=== PATIENT | male | born 1955 | race Caucasian/White ===

== ENCOUNTER 2016-06-21 05:47 | Outpatient (CLI) | payer OTHER ==
[~2016-06-21] VITALS: Ht 177.8 cm; Wt 88.5 kg
[~2016-06-21 05:47] MED LIST: HYDR-34 PO; ROSU20TA14 PO
== END 2016-06-21 12:31 ==
LOC: PREOP 05:47
PROVIDERS: ATTEND Surgery Pediatric Surgery
DX: Z01.818 Encounter for other preprocedural examination (principal); Z12.11 Encounter for screening for malignant neoplasm of colon

== ENCOUNTER 2016-06-24 10:00 | Day surgery (SDC) | payer OTHER ==
[~2016-06-24] VITALS: Ht 177.8 cm; Wt 88.5 kg
[2016-06-24] MEDS ORDERED: NALOXONE 0.4 MG/ML 1 ML (NARCAN) VIAL IVP PRN (10:15)
[2016-06-24] MEDS ORDERED: LIDOCAINE JELLY 2% (XYLOCAINE) 5 ML TUBE MM PRN (10:15)
[2016-06-24] MEDS ORDERED: FLUMAZENIL (ROMAZICON) 0.1 MG/ML 5 ML VIAL INJ PRN (10:15)
[2016-06-24] MEDS ORDERED: NS IV 500 ML 500 ML ONE (10:17)
[2016-06-24] MEDS ORDERED: NS IV 500 ML 500 ML IV PRN (10:30)
--- NOTE | 2016-06-24 10:38 | Conscious Sedation/ASA ---
Conscious Sedation Pre-Proced Time Reviewed: 10:30 ASA Class: 2 Airway Mallampati Classification: ([place] appropriate class) I. II. III, IV Lungs Heart ASA score ASA 1: a normal healthy patient ASA 2: a patient with a mild systemic disease (mid diabetes, controlled hypertension, obesity ASA 3: a patient with a severe systemic disease that limits activity (angina , COPD, prior Myocardial infarction) ASA 4: a patient with an incapacitating disease that is a constant threat to life (CHF, renal failure) ASA 5: a moribund patient not expected to survive 24 hrs. (ruptured aneurysm) ASA 6: a declared brain patient whose organs are being harvested. For emergent operations, add the letter E after the classification Grade 2 Sedation Plan: Analgesia, Amnesia, Plan communicated to team members, Discussed options with patient/fam, Discussed risks with patient/fam Note The patient is an appropriate candidate to undergo the planned procedure, sedation, and anesthesia. The patient immediately re-assessed prior to indication. ERIN ASHLEY MD June 24, 2016 10:38 am
--- NOTE | 2016-06-24 10:38 | Progress Note-Pre Operative ---
Pre-Operative Progress Note H&P Reviewed The H&P was reviewed, patient examined and no changes noted. Date H&P Reviewed: June 24, 2016 Time H&P Reviewed: 10:30 Pre-Operative Diagnosis: screening colonoscopy ERIN ASHLEY MD June 24, 2016 10:38 am
[2016-06-24 10:40] VITALS: BP 133/92
[2016-06-24] MEDS ORDERED: morphine INJ 10 MG/ML 1ML (SYR OR VIAL) IV PRN (10:45)
[2016-06-24] MEDS ORDERED: ACETAMINOPHEN 325 MG TABLET/CAPLET (TYLENOL) PO PRN (10:45)
[2016-06-24] MEDS ORDERED: HYDROcodone/APAP 5 MG/325 MG (LORTAB) TAB PO PRN (10:45)
[2016-06-24] MEDS ORDERED: ONDANSETRON 4 MG/2 ML (SDV) Z0FRAN IV PRN (10:45)
[2016-06-24] MEDS ORDERED: MIDAZOLAM 2 MG/2 ML (VERSED) VIAL ONE ×4 (10:48)
[2016-06-24] MEDS ORDERED: fentaNYL INJECTION 100 MCG/2 ML AMP ONE ×2 (10:49)
[2016-06-24] MEDS ORDERED: LIDOCAINE JELLY 2% (XYLOCAINE) 5 ML TUBE ONE (10:49)
[2016-06-24] MEDS: fentaNYL INJECTION 100 MCG/2 ML AMP IVP PRN ×2 (10:52→11:00)
[2016-06-24] MEDS: MIDAZOLAM 2 MG/2 ML (VERSED) VIAL IVP PRN ×4 (10:54→11:07)
--- NOTE | 2016-06-24 11:25 | Progress Note-Post Operative ---
Post-Operative Progess Note Surgeon (s)/C Developer (s) Surgeon ERIN ASHLEY MD C Developer: none Pre-Operative Diagnosis screening colonoscopy Post-Operative Diagnosis chronic stage 1 ext and int hemorrhoids, mild-mod sigmoid diverticulosis. Post-Op Procedure Note Date of Procedure: June 24, 2016 Name of Procedure Performed: Colonoscopy Description of the Procedure: Colonoscopy Findings of the Procedure . Anesthesia Type GET Estimated blood loss (mL): minimal Specimen(s) collected/removed GE jxn, antrum ERIN ASHLEY MD June 24, 2016 11:25 am
--- NOTE | 2016-06-24 11:26 | Discharge Inst-Surgical ---
D/C Lap Instructions-DION Follow Up 10 years. Activity as tolerated High Fiber Diet 25g or more per day Avoid Alcohol, Caffeine, Spicy Miles and Acid foods. Drink 64 fluid oz or more of fluids per day. Symptoms to Report: Fever over 101 degree F, Nausea/Vomiting If any problems/questions: Contact your physician or go to Emergency Room ERIN ASHLEY MD June 24, 2016 11:26 am
[2016-06-24 11:40] VITALS: BP 123/73
[2016-06-24 12:00] VITALS: BP 137/80
--- NOTE | 2016-06-24 12:16 | OPERATIVE REPORT ---
DATE OF SERVICE: 06/24/2016 ATTENDING PHYSICIAN: Dr. Novak. PREOPERATIVE DIAGNOSIS: Screening colonoscopy. POSTOPERATIVE DIAGNOSIS: Mild chronic stage I external and internal hemorrhoids, mild to moderate sigmoid diverticulosis. PROCEDURE: Colonoscopy. SURGEON: Dr. Ashley. ANESTHESIA: Conscious sedation. ESTIMATED BLOOD LOSS: Minimal. FINDINGS: Mild chronic stage I external and internal hemorrhoids. Prostate gland was palpable and appeared normal. There was a mild to moderate sigmoid diverticulosis with no mucosal inflammatory changes to indicate any active diverticulitis. No polyps identified. DISPOSITION: The patient tolerated the procedure well. The patient is a 61-year-old male in need of a followup screening colonoscopy. This gentleman is doing well for the most part and states that he does have a bowel movement on a daily basis. He also does not report any major issues with diarrhea or constipation. He also does not report any red blood per rectum or any dark tarry stools. He did have a colonoscopy in 2006 which was normal. He also does not report any family history of colon cancer. The patient was brought to the endoscopy suite, laid in the left lateral decubitus position. After adequate IV pain and sedating medications and conscious sedation anesthesia, a digital rectal examination was performed. Chronic stage II external and internal hemorrhoids were identified which are not actively edematous and no bleeding. Normal sphincter tone was felt and there were no palpable masses. Prostate gland was palpable and appeared normal. The endoscope was then intubated to the anus and rectum and gently insufflated. The endoscope was then advanced to the valves of Sims of the rectum with no polyps or any neoplasms identified. We then proceeded through the sigmoid colon where mild to moderate sigmoid diverticulosis was identified. There were no mucosal inflammatory changes to indicate any active diverticulitis. The endoscope was then advanced to the remainder of the descending, transverse, and ascending colon to the cecum. These segments were normal. There were no polyps or any neoplasms identified throughout the colon or rectum. The endoscope was then slowly withdrawn with taking a second look and suctioning of residual air with no additional findings. The patient tolerated the procedure well. We will have him continue with medical management with a high fiber diet with at least 30 grams of fiber per day to promote soft stools on a daily basis. He does not need another colonoscopy for another ten years. Job ID: [id number] DocumentID: [id number] Dictated Date: 06/24/2016 11:18:57 Driver License Technician Date: 06/24/2016 12:15:34 Dictated By: ERIN ASHLEY MD MTDD
[2016-06-24 12:17] VITALS: BP 137/80
== END 2016-06-24 12:18 | disposition home or self-care (01) ==
LOC: ENDO 10:00
PROVIDERS: ATTEND Surgery Pediatric Surgery
DX: Z12.11 Encounter for screening for malignant neoplasm of colon (principal); K64.0 First degree hemorrhoids; K57.30 Diverticulosis of large intestine without perforation or abscess without bleeding; E78.00 Pure hypercholesterolemia, unspecified; Z79.899 Other long term (current) drug therapy

== ENCOUNTER 2021-05-17 10:56 | Inpatient (IN) | payer MEDICARE ==
[~2021-05-17] VITALS: Ht 175.3 cm; Wt 83.6 kg
--- NOTE | 2021-05-17 11:23 | ED Chest Pain ---
General Chief Complaint: Chest Pain Stated Complaint: CHEST PAIN Nursing Triage Note: PT AMB TO RM 03, PT CO OF CHEST PRESSURE/PAIN 05/30. DOES NOT KNOW IF ITS REFLUX OR HEART PAIN, PT STATES SOMETIMES HAS SORE THROAT. PT STATES IF WALKS SOMETIMES GETS SOB Source: patient Exam Limitations: no limitations History of Present Illness Date Seen by Provider: May 17, 2021 Time Seen by Provider: 11:20 Initial Comments Patient is a 66-year-old male with a history of dyslipidemia, hypertension, family cardiac history presents ED with chest pressure and pain. Patient rep orts chest tightness and pressure over the past week. This appears to be intermittent. He states that pain appears to be worse with exertion with associated shortness of breath. He states that this morning he went to go feed his dogs he started having shortness of breath and chest tightness. He has been having intermittent radiating pain into the shoulders. He does report belching at night and noted a acidic taste in his mouth. Has been taken Tums and Nexium with very minimal improvement. No known cardiac history or history of CHF. No recent travels or surgeries. Patient states he has this discomfort in the past especially with exertion when he walked on a treadmill. He states he changed his breathing which seemed to improve. Did drink some 7-Up with some improvement. No known history of acid reflux, esophagitis, gastritis. He reports some discomfort with eating. Denies fever, chills, headache, dizziness, sore throat, nausea, vomiting, abdominal pain, lower extremity swelling or pain. Allergies and Home Medications Allergies Coded Allergies: No Known Drug Allergies (Unverified , 05/06/14) Patient Home Medication List Home Medication List Reviewed: Yes No Active Prescriptions or Reported Meds Review of Systems Review of Systems Constitutional: No chills, No diaphoresis, No dizziness, No fever, No malaise EENTM: No Double Vision, No Eye Pain, No Mouth Pain, No Mouth Swelling Respiratory: Cough, SOA With Exertion Cardiovascular: Chest Pain Gastrointestinal: Denies Abdominal Pain, Denies Constipated, Denies Diarrhea, Denies Nausea, Denies Vomiting Genitourinary: Denies Discharge, Denies Drainage, Denies Frequency Musculoskeletal: No back pain, No joint pain, No muscle pain, No muscle stiffness Skin: No change in color, No change in hair/nails Psychiatric/Neurological: Denies Headache, Denies Numbness All Other Systems Reviewed Negative Unless Noted: Yes Past Frpovrh-Scpggi-Nklvho Hx Patient Social History Tobacco Use?: No Substance use?: No Alcohol Use?: Yes Alcohol type: Beer Alcohol Frequency: Once in a while Pt feels they are or have been: No Immunizations Up To Date Influenza Vaccine Up-to-Date: Yes; Up-to-Date First/Initial COVID19 Vaccinat: 2020 Second COVID19 Vaccination Joey: 2020 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: [employer] Seasonal Allergies Seasonal Allergies: Yes (mild) Past Medical History Surgeries: Yes (bilat feet) Appendectomy Respiratory: No Cardiac: Yes High Cholesterol Neurological: No Reproductive Disorders: No Sexually Transmitted Disease: No HIV/AIDS: No Gastrointestinal: No Musculoskeletal: No Endocrine: No Loss of Vision: Denies Hearing Impairment: Denies Cancer: No Did You Recieve Any Treatments: No Psychosocial: No Integumentary: No Blood Disorders: No Family Medical History Heart Disease, Hypertension, Other Conditions/Hx Physical Exam Vital Signs Vital Signs - First Documented 05/17/21 10:57 Temp 36.6 Pulse 73 Resp 18 B/P (MAP) 164/107 (126) Pulse Ox 97 Capillary Refill : Less Than 3 Seconds Height, Weight, BMI Height: 5'10.00" Weight: 185lbs. 0oz. 83.472304lb; 28.00 BMI Method:Stated General Appearance: No Apparent Distress, WD/WN HEENT: PERRL/EOMI, TMs Normal, Normal ENT Inspection, Pharynx Normal Neck: Full Range of Motion, Normal Inspection, Non Tender, Supple Respiratory: Chest Non Tender, Lungs Clear, Normal Breath Sounds, No Accessory Muscle Use, No Respiratory Distress Cardiovascular: Regular Rate, Rhythm, No Edema, No Gallop, No JVD Gastrointestinal: Normal Bowel Sounds, No Organomegaly, No Pulsatile Mass, Non Tender Extremity: Normal Capillary Refill, Normal Inspection, Normal Range of Motion, Non Tender Neurologic/Psychiatric: Alert, Oriented x3, No Motor/Sensory Deficits, Normal Mood/Affect Skin: Normal Color, Warm/Dry Progress/Results/Core Measures Results/Orders Lab Results Laboratory Tests Test 05/17/21 11:06 Range/Units White Blood Count 6.5 4.3-11.0 10^3/uL Red Blood Count 4.94 4.30-5.52 10^6/uL Hemoglobin 15.1 13.3-17.7 g/dL Hematocrit 44 40-54 % Mean Corpuscular Volume 89 80-99 fL Mean Corpuscular Hemoglobin 31 25-34 pg Mean Corpuscular Hemoglobin Concent 34 32-36 g/dL Red Cell Distribution Width 13.0 10.0-14.5 % Platelet Count 256 130-400 10^3/uL Mean Platelet Volume 9.6 9.0-12.2 fL Immature Granulocyte % (Auto) 0 % Neutrophils (%) (Auto) 48 42-75 % Lymphocytes (%) (Auto) 40 12-44 % Monocytes (%) (Auto) 9 0-12 % Eosinophils (%) (Auto) 2 0-10 % Basophils (%) (Auto) 1 0-10 % Neutrophils # (Auto) 3.1 1.8-7.8 10^3/uL Lymphocytes # (Auto) 2.6 1.0-4.0 10^3/uL Monocytes # (Auto) 0.6 0.0-1.0 10^3/uL Eosinophils # (Auto) 0.2 0.0-0.3 10^3/uL Basophils # (Auto) 0.0 0.0-0.1 10^3/uL Immature Granulocyte # (Auto) 0.0 0.0-0.1 10^3/uL Prothrombin Time 13.9 12.2-14.7 SEC INR Comment 1.0 0.8-1.4 Activated Partial Thromboplast Time 30 24-35 SEC Sodium Level 137 135-145 MMOL/L Potassium Level 4.2 3.6-5.0 MMOL/L Chloride Level 104 98-107 MMOL/L Carbon Dioxide Level 26 21-32 MMOL/L Anion Gap 7 5-14 MMOL/L Blood Urea Nitrogen 17 7-18 MG/DL Creatinine 1.03 0.60-1.30 MG/DL Estimat Glomerular Filtration Rate 79 BUN/Creatinine Ratio 17 Glucose Level 106 H 70-105 MG/DL Calcium Level 10.0 8.5-10.1 MG/DL Corrected Calcium 9.8 8.5-10.1 MG/DL Magnesium Level 1.9 1.6-2.4 MG/DL Total Bilirubin 1.1 H 0.1-1.0 MG/DL Aspartate Amino Transf (AST/SGOT) 22 5-34 U/L Alanine Aminotransferase (ALT/SGPT) 24 0-55 U/L Alkaline Phosphatase 70 40-136 U/L Myoglobin 62.3 10.0-92.0 NG/ML Troponin I 0.121 H <0.028 NG/ML B-Type Natriuretic Peptide 10.1 <100.0 PG/ML Total Protein 7.9 6.4-8.2 GM/DL Albumin 4.2 3.2-4.5 GM/DL Lipase 32 8-78 U/L My Orders Orders - ELEANOR CROOKS PA Cbc With Automated Diff (05/17/21 11:18) Magnesium (05/17/21 11:18) Chest 1 View, Ap/Pa Only (05/17/21 11:18) Ekg Tracing (05/17/21 11:18) Comprehensive Metabolic Panel (05/17/21 11:18) Myoglobin Serum (05/17/21 11:18) Protime With Inr (05/17/21 11:18) Partial Thromboplastin Time (05/17/21 11:18) O2 (05/17/21 11:18) Monitor-Rhythm Ecg Trace Only (05/17/21 11:18) Lipid Panel (05/18/21 06:00) Ed Iv/Invasive Line Start (05/17/21 11:18) Lipase (05/17/21 11:18) Bnp Christie (05/17/21 11:18) Troponin I Crhistie (05/17/21 11:18) Aspirin Chewable Tablet (Baby Aspirin Ch (05/17/21 11:30) Enoxaparin Injection (Lovenox Injection (05/17/21 12:15) Metoprolol Succinate (Xl) Tab (Toprol Xl (05/17/21 12:15) Clopidogrel Tablet (Plavix Tablet) (05/17/21 12:15) Ed Admission (Communication) (05/17/21 12:25) Medications Given in ED Current Medications Medications Dose Ordered Sig/Yazan Route Start Time Stop Time Status Last Admin Dose Admin Aspirin 324 mg ONCE ONCE PO 05/17/21 11:30 05/17/21 11:31 DC 05/17/21 11:34 324 MG Enoxaparin Sodium 40 mg ONCE ONCE SC 05/17/21 12:15 05/17/21 12:16 DC 05/17/21 12:45 40 MG Metoprolol Succinate 100 mg ONCE ONCE PO 05/17/21 12:15 05/17/21 12:16 DC 05/17/21 12:45 100 MG Vital Signs/I&O 05/17/21 10:57 Temp 36.6 Pulse 73 Resp 18 B/P (MAP) 164/107 (126) Pulse Ox 97 Blood Pressure Mean: 126 Comment Sinus rhythm, 72 bpm, QRS duration 89 MS, QTC 399 MS Departure Communication (Admissions) Time/Spoke to Admitting Phy: 12:08 Patient was discussed with Dr. Quach cardiology who recommends starting metoprolol 100 mg twice daily, Plavix 75 mg daily,, daily baby aspirin 81 mg, Lovenox 40 mg subcu daily. Patient is not n.p.o. Does have cardiac risk factors. Recommends admit to stepdown with admission to hospitalist with cardiac consult. Patient was discussed with Dr. Larson who accepts patient at this time. Serial troponins further cardiac evaluation Impression Primary Impression: NSTEMI (non-ST elevated myocardial infarction) Disposition: ADMITTED INPATIENT Condition: Stable Admissions Decision to Admit Reason: Admit from ER (General) Decision to Admit/Date: May 17, 2021 Time/Decision to Admit Time: 12:08 Departure-Patient Inst. Referrals: ORACIO LANE MD (PCP/Family) Primary Care Physician Scripts No Active Prescriptions or Reported Meds ELEANOR CROOKS May 17, 2021 11:23
[2021-05-17] MEDS ORDERED: ASPIRIN 81 MG CHEW (CHILDREN'S ASA) PO ONE (11:30)
[2021-05-17 11:32] LABS: BASOPHILS % (AUTO) 1 % (0-10); EOSINOPHILS # (AUTO) 0.2 10^3/uL (0.0-0.3); EOSINOPHILS % (AUTO) 2 % (0-10); HEMATOCRIT 44 % (40-54); HEMOGLOBIN 15.1 g/dL (13.3-17.7); LYMPHOCYTES # (AUTO) 2.6 10^3/uL (1.0-4.0); LYMPHOCYTES % (AUTO) 40 % (12-44); MEAN CORPUSCULAR HEMOGLOBIN 31 pg (25-34); MEAN CORPUSCULAR HGB CONC 34 g/dL (32-36); MEAN CORPUSCULAR VOLUME 89 fL (80-99); MEAN PLATELET VOLUME 9.6 fL (9.0-12.2); MONOCYTES # (AUTO) 0.6 10^3/uL (0.0-1.0); MONOCYTES % (AUTO) 9 % (0-12); NEUTROPHILS # (AUTO) 3.1 10^3/uL (1.8-7.8); NEUTROPHILS % (AUTO) 48 % (42-75); PLATELET COUNT 256 10^3/uL (130-400); WHITE BLOOD COUNT 6.5 10^3/uL (4.3-11.0)
[2021-05-17 11:38] LABS: PROTHROMBIN TIME PATIENT 13.9 SEC (12.2-14.7)
[2021-05-17 11:47] LABS: ALBUMIN 4.2 GM/DL (3.2-4.5); BILIRUBIN,TOTAL 1.1 MG/DL (0.1-1.0); CREATININE SERUM 1.03 MG/DL (0.60-1.30); MAGNESIUM 1.9 MG/DL (1.6-2.4); POTASSIUM 4.2 MMOL/L (3.6-5.0); TOTAL PROTEIN 7.9 GM/DL (6.4-8.2)
[2021-05-17] MEDS ORDERED: ENOXAPARIN 40 MG/0.4 ML (LOVENOX) SYR SC ONE (12:15)
[2021-05-17] MEDS ORDERED: meTOprolol SUCCINATE 100 MG (TOPROL XL) TAB PO ONE (12:15)
[2021-05-17] MEDS ORDERED: CLOPIDOGREL 300 MG (PLAVIX) TABLET PO ONE (12:15)
--- NOTE | 2021-05-17 12:33 | Diagnostic Imaging Report ---
INDICATION: Chest pain and pressure. TECHNIQUE: A frontal chest was obtained at 11:35 AM. COMPARISON: 07/06/2017. FINDINGS: The heart and mediastinal silhouette are normal in appearance. The lungs are clear. There is no pneumothorax or pleural fluid. IMPRESSION: Negative chest. Dictated by: Dictated on workstation # [id number]
[2021-05-17] MEDS ORDERED: CLOPIDOGREL 75 MG (PLAVIX) TABLET PO ONE (12:45)
[2021-05-17] MEDS ORDERED: ONDANSETRON 4 MG/2 ML (SDV) Z0FRAN IV PRN (13:45)
[2021-05-17] MEDS ORDERED: diphenhydrAMINE 25 MG TAB (BENADRYL) PO PRN (13:45)
[2021-05-17] MEDS ORDERED: polyethylene glycoL POWDER 17 GM (MIRALAX) PACK PO PRN (13:45)
[2021-05-17] MEDS ORDERED: MELATONIN 3 MG TABLET PO PRN (13:45)
[2021-05-17] MEDS ORDERED: ACETAMINOPHEN 325 MG TABLET PO PRN (13:45)
[2021-05-17] MEDS ORDERED: ANTACID SUSP 30 ML UDC (MYLANTA) PO PRN (13:45)
[2021-05-17] MEDS ORDERED: ONDANSETRON 4 MG (ZOFRAN) ORAL DISSOLVE TAB PO PRN (13:45)
[2021-05-17 14:15] VITALS: BP 163/100
--- NOTE | 2021-05-17 14:17 | Consultation-Cardiology ---
HPI-Cardiology Cardiology Consultation: Date of Consultation 05/17/21 Time Seen by a Provider: 13:30 Date of Admission 05-17-21 Attending Physician Ana Larson MD Admitting Physician Eduardo Novak MD Consulting Physician Ted Quach MD HPI: Chief Complaint: NSTEMI Mr. Dominguez is a 66 yr old male who has been admitted to ICU 4 with NSTEMI. He reports for the last week he has noted indigestion, belching, chest pressure once or twice a day with strenuous exertion, relieved with rest. He states over the last 2 days he has had increasing episodes of chest pressure which radiates across his chest, belching, SOB and nausea at times with any exertional activity. It would last for a few minutes, he would belch and then it would improve. The chest pressure would radiate across his chest. He reports increasing fatigue over the last few days. He denies any syncope or near syncope. No c/o palpitations. No c/o LE swelling. His spouse is at the bedside; she is an RN (retired). He is supposed to be taking Norvasc and a statin, but he has not taken these medications for several days. He does not take ASA. Review of Systems-Cardiology Review of Systems Constitutional: No chills, No fever; malaise, tiredness Eyes: No vision change Ears/Nose/Throat: No epistaxis, No recent hearing loss Respiratory: As described under HPI Cardiovascular: As described under HPI Gastrointestinal: As described under HPI Genitourinary: No dysuria, No hematuria Skin: No rash on exposed areas, No ulcerations on exposed areas Psychiatric/Neurological: No anxiety, No depression, No seizure, No focal weakness, No syncope Hematologic: No bleeding abnormalities All Other Systems Reviewed Negative Unless Noted: Yes CBO-Drrlby-Vauvto Hx Patient Social History 2nd Hand Smoke Exposure: No Have you traveled recently?: No Alcohol Use?: Yes Pt feels they are or have been: No Immunizations Up To Date Date of Influenza Vaccine: Dec 09, 2013 Past Medical History PMH As described under Assessment. Family Medical History Family Medical History: He reports his mother passed from an CT. He reports he has a brother who has a pacemaker. Allergies and Home Medications Allergies Coded Allergies: No Known Drug Allergies (Unverified , 05/06/14) Patient Home Medication List No Active Prescriptions or Reported Meds Physical Exam-Cardiology Physical Exam Vital Signs/I&O 05/17/21 05/17/21 05/17/21 05/17/21 20:00 20:00 21:00 22:00 Pulse 61 59 56 Resp 18 19 17 B/P (MAP) 137/85 (102) 140/92 (108) 139/83 (101) Pulse Ox 98 94 94 94 O2 Delivery Room Air Room Air Room Air Room Air 05/17/21 05/17/21 05/18/21 05/18/21 23:00 23:48 00:00 01:00 Pulse 54 52 51 Resp 18 15 14 B/P (MAP) 135/90 (105) 135/82 (99) 135/82 (99) Pulse Ox 95 98 96 94 O2 Delivery Room Air Room Air Room Air Room Air 05/18/21 05/18/21 05/18/21 05/18/21 01:00 02:00 04:00 04:00 Pulse 55 53 52 Resp 11 16 B/P (MAP) 132/91 (105) Pulse Ox 94 91 90 O2 Delivery Room Air Room Air Room Air 05/18/21 05/18/21 06:00 07:38 Temp 36.6 Pulse 48 Resp 11 B/P (MAP) Pulse Ox 96 O2 Delivery Room Air 05/18/21 00:00 Intake Total 250 ml Output Total 300 ml Balance -50 ml Capillary Refill : Less Than 3 Seconds Constitutional: AAO x 3, well-developed, well-nourished HEENT: PERRL, hearing is well preserved, oral hygience is good Neck: No carotid bruit; carotid pulses are 2 + bilaterally Respiratory: No accessory muscle use, No respiratory distress; chest expansion is symmetric, chest is bilaterally symmetric, lungs clear to auscultation Cardiovascular: regular rate-rhythm; No JVD; S1 and S2 Gastrointestinal: No tender; soft, round, audible bowel sounds Extremities: no lower extremity edema bilateral Neurologic/Psychiatric: grossly intact (moves all extremities) Skin: No rash on exposed areas, No ulcerations on exposed areas Data Review Labs Laboratory Tests 05/17/21 11:06: White Blood Count 6.5, Red Blood Count 4.94, Hemoglobin 15.1, Hematocrit 44, Mean Corpuscular Volume 89, Mean Corpuscular Hemoglobin 31, Mean Corpuscular Hemoglobin Concent 34, Red Cell Distribution Width 13.0, Platelet Count 256, Mean Platelet Volume 9.6, Immature Granulocyte % (Auto) 0, Neutrophils (%) (Auto) 48, Lymphocytes (%) (Auto) 40, Monocytes (%) (Auto) 9, Eosinophils (%) (Auto) 2, Basophils (%) (Auto) 1, Neutrophils # (Auto) 3.1, Lymphocytes # (Auto) 2.6, Monocytes # (Auto) 0.6, Eosinophils # (Auto) 0.2, Basophils # (Auto) 0.0, I mmature Granulocyte # (Auto) 0.0, Prothrombin Time 13.9, INR Comment 1.0, Activated Partial Thromboplast Time 30, Sodium Level 137, Potassium Level 4.2, Chloride Level 104, Carbon Dioxide Level 26, Anion Gap 7, Blood Urea Nitrogen 17, Creatinine 1.03, Estimat Glomerular Filtration Rate 79, BUN/Creatinine Ratio 17, Glucose Level 106H, Calcium Level 10.0, Corrected Calcium 9.8, Magnesium Level 1.9, Total Bilirubin 1.1H, Aspartate Amino Transf (AST/SGOT) 22, Alanine Aminotransferase (ALT/SGPT) 24, Alkaline Phosphatase 70, Myoglobin 62.3, Troponin I 0.121H, B-Type Natriuretic Peptide 10.1, Total Protein 7.9, Albumin 4.2, Lipase 32 05/17/21 17:07: Troponin I 0.132H 05/17/21 23:10: Troponin I 0.147H 05/18/21 04:15: White Blood Count 6.8, Red Blood Count 5.04, Hemoglobin 15.0, Hematocrit 45, Mean Corpuscular Volume 89, Mean Corpuscular Hemoglobin 30, Mean Corpuscular Hemoglobin Concent 34, Red Cell Distribution Width 13.1, Platelet Count 254, Mean Platelet Volume 9.5, Prothrombin Time 13.8, INR Comment 1.0, Activated Partial Thromboplast Time 32, Sodium Level 139, Potassium Level 4.6, Chloride Level 103, Carbon Dioxide Level 22, Anion Gap 14, Blood Urea Nitrogen 19H, Creatinine 1.05, Estimat Glomerular Filtration Rate 77, BUN/Creatinine Ratio 18, Glucose Level 93, Calcium Level 9.8, Triglycerides Level 336H, Cholesterol Level 166, LDL Cholesterol Direct 87, VLDL Cholesterol 67H, HDL Cholesterol 23L Radiology NAME: FREDIS DOMINGUEZ [facility] REC#: [id number] PT STATUS: ADM IN : 1955 PHYSICIAN: ELEANOR CROOKS ADMIT DATE: 05/17/21/ICU Signed Date of Exam:05/17/21 CHEST 1 VIEW, AP/PA ONLY INDICATION: Chest pain and pressure. TECHNIQUE: A frontal chest was obtained at 11:35 AM. COMPARISON: 07/06/2017. FINDINGS: The heart and mediastinal silhouette are normal in appearance. The lungs are clear. There is no pneumothorax or pleural fluid. IMPRESSION: Negative chest. Dictated by: Dictated on workstation # [id number] Dict: 05/17/21 1230 Trans: 05/17/21 1256 [id number] Interpreted by: MOLLY SINGLETON MD Electronically signed by: MOLLY SINGLETON MD 05/17/21 1256 ECG Impression ECG Initial ECG Rhythm: Normal Sinus A/P-Cardiology Assessment/Admission Diagnosis NSTEMI HTN - has not been compliant with medications (Norvas) HLD - has not been compliant with statin H/O transient global amnesia in 2018 for which he was evaluated at [facility] by neurology - per pt/spouse no further episodes - cause unknown Family h/o CAD - Mother and brother Discussion and Recomendations NSTEMI - Advise cardiac cath. Discussed the procedure, risks, benefits and potential complications of cardiac cath with possible ad ho coronary intervention. He and his spouse verbalize understanding. Will proceed tomorrow or sooner if indicated. - statin, ASA, Plavix and BB Echocardiogram to eval structure Further recs will be based on his hospital course Monitor lab We would like to thank medical services for this consult Clinical Quality Measures AMI/AHF: ASA po Prior to arrival: HARRISON Kunz May 17, 2021 14:17
--- NOTE | 2021-05-17 16:51 | Consultation-Cardiology ---
HPI-Cardiology Cardiology Consultation: Date of Consultation 05/17/21 Time Seen by a Provider: 16:20 Date of Admission Attending Physician Ana Larson MD Admitting Physician Eduardo Novak MD Consulting Physician MARISOL COSTELLO MD, MA, FACP, FACC, [facility] [place], CCDS HPI: Chief Complaint: NSTEMI Mr. Dominguez is a 66 yr old male who has been admitted to ICU 4 with NSTEMI. He reports for the last week he has noted indigestion, belching, chest pressure once or twice a day with strenuous exertion, relieved with rest. He states over the last 2 days he has had increasing episodes of chest pressure which radiates across his chest, belching, SOB and nausea at times with any exertional activity. It would last for a few minutes, he would belch and then it would improve. The chest pressure would radiate across his chest. He reports increasing fatigue over the last few days. He denies any syncope or near syncope. No c/o palpitations. No c/o LE swelling. His spouse is at the bedside; she is an RN (retired). He is supposed to be taking Norvasc and a statin, but he has not taken these medications for several days. He does not take ASA. Review of Systems-Cardiology Review of Systems Constitutional: No chills, No fever; malaise, tiredness Eyes: No vision change Ears/Nose/Throat: No epistaxis, No recent hearing loss Respiratory: As described under HPI Cardiovascular: As described under HPI Gastrointestinal: As described under HPI Genitourinary: No dysuria, No hematuria Skin: No rash on exposed areas, No ulcerations on exposed areas Psychiatric/Neurological: No anxiety, No depression, No seizure, No focal weakness, No syncope Hematologic: No bleeding abnormalities All Other Systems Reviewed Negative Unless Noted: Yes CPA-Elxcre-Qmeesi Hx Patient Social History 2nd Hand Smoke Exposure: No Have you traveled recently?: No Alcohol Use?: Yes Pt feels they are or have been: No Immunizations Up To Date Date of Influenza Vaccine: Dec 07, 2020 Past Medical History PMH As described under Assessment. Family Medical History Family Medical History: He reports his mother passed from an NE. He reports he has a brother who has a pacemaker. Allergies and Home Medications Allergies Coded Allergies: No Known Drug Allergies (Unverified , 05/06/14) Patient Home Medication List Home Medication List Reviewed: Yes No Active Prescriptions or Reported Meds Physical Exam-Cardiology Physical Exam Vital Signs/I&O 05/17/21 05/17/21 05/17/21 05/17/21 10:57 12:49 14:15 14:15 Temp 36.6 Pulse 73 59 58 54 Resp 18 18 15 B/P (MAP) 164/107 (126) 133/98 163/100 (121) Pulse Ox 97 97 98 O2 Delivery Room Air 05/17/21 05/17/21 14:50 15:52 Temp 36.6 O2 Delivery Room Air Capillary Refill : Less Than 3 Seconds Constitutional: AAO x 3, well-developed, well-nourished HEENT: PERRL, hearing is well preserved, oral hygience is good Neck: No carotid bruit; carotid pulses are 2 + bilaterally Respiratory: No accessory muscle use, No respiratory distress; chest expansion is symmetric, chest is bilaterally symmetric, lungs clear to auscultation Cardiovascular: regular rate-rhythm; No JVD; S1 and S2 Gastrointestinal: No tender; soft, round, audible bowel sounds Extremities: no lower extremity edema bilateral Neurologic/Psychiatric: grossly intact (moves all extremities) Skin: No rash on exposed areas, No ulcerations on exposed areas Data Review Labs Laboratory Tests 05/17/21 11:06: White Blood Count 6.5, Red Blood Count 4.94, Hemoglobin 15.1, Hematocrit 44, Mean Corpuscular Volume 89, Mean Corpuscular Hemoglobin 31, Mean Corpuscular Hemoglobin Concent 34, Red Cell Distribution Width 13.0, Platelet Count 256, Mean Platelet Volume 9.6, Immature Granulocyte % (Auto) 0, Neutrophils (%) (Auto) 48, Lymphocytes (%) (Auto) 40, Monocytes (%) (Auto) 9, Eosinophils (%) (Auto) 2, Basophils (%) (Auto) 1, Neutrophils # (Auto) 3.1, Lymphocytes # (Auto) 2.6, Monocytes # (Auto) 0.6, Eosinophils # (Auto) 0.2, Basophils # (Auto) 0.0, Immature Granulocyte # (Auto) 0.0, Prothrombin Time 13.9, INR Comment 1.0, Activated Partial Thromboplast Time 30, Sodium Level 137, Potassium Level 4.2, Chloride Level 104, Carbon Dioxide Level 26, Anion Gap 7, Blood Urea Nitrogen 17, Creatinine 1.03, Estimat Glomerular Filtration Rate 79, BUN/Creatinine Ratio 17, Glucose Level 106H, Calcium Level 10.0, Corrected Calcium 9.8, Magnesium Level 1.9, Total Bilirubin 1.1H, Aspartate Amino Transf (AST/SGOT) 22, Alanine Aminotransferase (ALT/SGPT) 24, Alkaline Phosphatase 70, Myoglobin 62.3, Troponin I 0.121H, B-Type Natriuretic Peptide 10.1, Total Protein 7.9, Albumin 4.2, Lipase 32 A/P-Cardiology Assessment/Admission Diagnosis NSTEMI HTN - has not been compliant with medications (Norvas) HLD - has not been compliant with statin H/o transient global amnesia in 2018 for which he was evaluated at [facility] by neurology - per pt/spouse no further episodes - cause unknown Family h/o CAD - Mother and brother Discussion and Recomendations - Advise cardiac cath. Discussed the procedure, risks, benefits and potential complications of cardiac cath with possible ad ho coronary intervention. He and his spouse verbalize understanding. Will proceed tomorrow or sooner if indicated. - statin, ASA, Plavix and BB - Echocardiogram to eval structure - Further recs will be based on his hospital course - Monitor lab - We would like to thank Medical services for this consult Clinical Quality Measures AMI/AHF: ASA po Prior to arrival: MARISOL Venegas MD FACP FAC CCDS May 17, 2021 16:51
[2021-05-17] MEDS ORDERED: amLODIPine 5 MG (NORVASC) TAB PO NR (17:00)
[2021-05-17 19:00] VITALS: BP 131/85
[2021-05-17 20:00] VITALS: BP 137/85
[2021-05-17 21:00] VITALS: BP 140/92
[2021-05-17] MEDS ORDERED: meTOprolol TARTRATE 50 MG (LOPRESSOR) TAB PO SCH ×2 (21:00)
[2021-05-17 22:00] VITALS: BP 139/83
[2021-05-17 23:00] VITALS: BP 135/90
[2021-05-18] VITALS (24 sets, daily range): BP systolic 110–143; BP diastolic 72–99
[2021-05-18 04:43] LABS: HEMATOCRIT 45 % (40-54); MEAN CORPUSCULAR HEMOGLOBIN 30 pg (25-34); MEAN CORPUSCULAR HGB CONC 34 g/dL (32-36); MEAN CORPUSCULAR VOLUME 89 fL (80-99); MEAN PLATELET VOLUME 9.5 fL (9.0-12.2); PLATELET COUNT 254 10^3/uL (130-400); WHITE BLOOD COUNT 6.8 10^3/uL (4.3-11.0)
[2021-05-18 04:55] LABS: PROTHROMBIN TIME PATIENT 13.8 SEC (12.2-14.7)
[2021-05-18 05:22] LABS: CALCIUM 9.8 MG/DL (8.5-10.1); CREATININE SERUM 1.05 MG/DL (0.60-1.30); POTASSIUM 4.6 MMOL/L (3.6-5.0)
[2021-05-18] MEDS: NS IV 1000 ML 1,000 ML IV SCH ×3 (06:00→20:32)
[2021-05-18] MEDS ORDERED: LIDOCAINE 1% INJ 50 ML (XYLOCAINE) VIAL ONE (06:47)
[2021-05-18] MEDS ORDERED: HEParin (CATH LAB) 2,000 ML IV ONE (06:48)
[2021-05-18] MEDS ORDERED: fentaNYL INJ 100 MCG/2 ML AMP ONE (07:59)
[2021-05-18] MEDS ORDERED: MIDAZOLAM 5 MG/5 ML (VERSED) VIAL ONE (07:59)
[2021-05-18] MEDS ORDERED: HEParin 1000 UNIT/ML (10ML VIAL) FOR BOLUS ONE (08:54)
[2021-05-18] MEDS ORDERED: EPTIFIBATIDE BOLUS 10 ML IV ONE ×2 (08:56→09:07)
[2021-05-18] MEDS ORDERED: HEParin (CATH LAB) 1,000 ML IV ONE (10:07)
[2021-05-18] MEDS ORDERED: CLOPIDOGREL 300 MG (PLAVIX) TABLET PO ONE (10:35)
[2021-05-18] MEDS ORDERED: ASPIRIN 81 MG CHEW (CHILDREN'S ASA) ONE (10:35)
[2021-05-18] MEDS ORDERED: PATIENT MAY USE OWN MEDS, ALL PO SCH (10:45)
--- NOTE | 2021-05-18 10:49 | Progress Note - Cardiology ---
Cardiology SOAP Progress Note Subjective: No recurrence of chest pain since initial presentation No shortness of breath or swelling or palp No n/v/d Objective: I&O/Vital Signs 05/17/21 05/17/21 05/18/21 05/18/21 23:00 23:48 00:00 01:00 Pulse 54 52 51 Resp 18 15 14 B/P (MAP) 135/90 (105) 135/82 (99) 135/82 (99) Pulse Ox 95 98 96 94 O2 Delivery Room Air Room Air Room Air Room Air 05/18/21 05/18/21 05/18/21 05/18/21 01:00 02:00 04:00 04:00 Pulse 55 53 52 Resp 11 16 B/P (MAP) 132/91 (105) Pulse Ox 94 91 90 O2 Delivery Room Air Room Air Room Air 05/18/21 05/18/21 05/18/21 05/18/21 06:00 07:00 07:00 07:00 Pulse 48 52 52 52 Resp 11 11 11 B/P (MAP) Pulse Ox 96 93 93 O2 Delivery Room Air Room Air Room Air 05/18/21 05/18/21 05/18/21 05/18/21 07:38 08:00 08:00 09:00 Temp 36.6 Pulse 53 53 Resp 20 19 B/P (MAP) 133/87 (102) Pulse Ox 96 95 93 O2 Delivery Room Air Room Air Room Air 05/18/21 00:00 Intake Total 250 ml Output Total 300 ml Balance -50 ml Weight (Pounds): 185 Weight (Ounces): 0 Weight (Calculated Kilograms): 83.354227 Constitutional: AAO x 3, well-developed, well-nourished Respiratory: No accessory muscle use, No respiratory distress; chest expansion is symmetric, chest is bilaterally symmetric, lungs clear to auscultation Cardiovascular: regular rate-rhythm; No JVD; S1 and S2 Gastrointestional: No tender; soft, round, audible bowel sounds Extremities: no lower extremity edema bilateral Neurologic/Psychiatric: other (moves all limbs equally) Skin: No rash on exposed areas, No ulcerations on exposed areas Results/Procedures: Labs Laboratory Tests 05/17/21 11:06: White Blood Count 6.5, Red Blood Count 4.94, Hemoglobin 15.1, Hematocrit 44, Mean Corpuscular Volume 89, Mean Corpuscular Hemoglobin 31, Mean Corpuscular Hemoglobin Concent 34, Red Cell Distribution Width 13.0, Platelet Count 256, Mean Platelet Volume 9.6, Immature Granulocyte % (Auto) 0, Neutrophils (%) (A uto) 48, Lymphocytes (%) (Auto) 40, Monocytes (%) (Auto) 9, Eosinophils (%) (Auto) 2, Basophils (%) (Auto) 1, Neutrophils # (Auto) 3.1, Lymphocytes # (Auto) 2.6, Monocytes # (Auto) 0.6, Eosinophils # (Auto) 0.2, Basophils # (Auto) 0.0, Immature Granulocyte # (Auto) 0.0, Prothrombin Time 13.9, INR Comment 1.0, Activated Partial Thromboplast Time 30, Sodium Level 137, Potassium Level 4.2, Chloride Level 104, Carbon Dioxide Level 26, Anion Gap 7, Blood Urea Nitrogen 17, Creatinine 1.03, Estimat Glomerular Filtration Rate 79, BUN/Creatinine Ratio 17, Glucose Level 106H, Calcium Level 10.0, Corrected Calcium 9.8, Magnesium Level 1.9, Total Bilirubin 1.1H, Aspartate Amino Transf (AST/SGOT) 22, Alanine Aminotransferase (ALT/SGPT) 24, Alkaline Phosphatase 70, Myoglobin 62.3, Troponin I 0.121H, B-Type Natriuretic Peptide 10.1, Total Protein 7.9, Albumin 4.2, Lipase 32 05/17/21 17:07: Troponin I 0.132H 05/17/21 23:10: Troponin I 0.147H 05/18/21 04:15: White Blood Count 6.8, Red Blood Count 5.04, Hemoglobin 15.0, Hematocrit 45, Mean Corpuscular Volume 89, Mean Corpuscular Hemoglobin 30, Mean Corpuscular Hemoglobin Concent 34, Red Cell Distribution Width 13.1, Platelet Count 254, Mean Platelet Volume 9.5, Prothrombin Time 13.8, INR Comment 1.0, Activated Partial Thromboplast Time 32, Sodium Level 139, Potassium Level 4.6, Chloride Level 103, Carbon Dioxide Level 22, Anion Gap 14, Blood Urea Nitrogen 19H, Creatinine 1.05, Estimat Glomerular Filtration Rate 77, BUN/Creatinine Ratio 18, Glucose Level 93, Calcium Level 9.8, Triglycerides Level 336H, Cholesterol Level 166, LDL Cholesterol Direct 87, VLDL Cholesterol 67H, HDL Cholesterol 23L Laboratory Tests 05/17/21 11:06 05/18/21 04:15 A/P: Assessment: CAD. NSTEMI on 05/17/21 - Echo 05/17/21: LVEF 60-65%, PASP 20 mmHg - Cath 05/18/21: 99% mid-RCA (dominant vessel) stented successfully with Skypoint 3x12 stent, mild plaque of LAD and LCx, LVEDP 9 mmHg, LVEF 60-65% HTN - has not been compliant with medications (Norvasc) HLD - has not been compliant with statin H/o transient global amnesia in 2018 for which he was evaluated at [facility] by neurology - per pt/spouse no further episodes - cause unknown Family h/o CAD - Mother and brother Plan: - statin, ASA, Plavix and BB - Monitor lab - I spoke with him and his fam and explained findings of cath and invterventions undertaken Clinical Quality Measures AMI/AHF: ASA po Prior to arrival: MARISOL Venegas MD FACP FAC CCDS May 18, 2021 10:49
[2021-05-18] MEDS: ASPIRIN 81 MG CHEW (CHILDREN'S ASA) PO SCH (11:32)
[2021-05-18] MEDS: CLOPIDOGREL 75 MG (PLAVIX) TABLET PO SCH (11:33)
--- NOTE | 2021-05-18 11:51 | Cardiac Procedure Note-CS/ASA ---
Pre-Procedure Note Pre-Op Procedure Note H&P Reviewed The H&P was reviewed, patient examined and no changes noted. Date H&P Reviewed: May 18, 2021 Time H&P Reviewed: 08:25 Conscious Sedation Pre-Proced Time 08:25 ASA Score 3 For ASA 3 and 4: Consider anesthesia and medical clearance. Also, for patients with a history of failed moderate sedation consider anesthesia. Airway Lungs Heart ASA score ASA 1: a normal healthy patient ASA 2: a patient with a mild systemic disease (mid diabetes, controlled hypertension, obesity ASA 3: a patient with a severe systemic disease that limits activity (angina, COPD, prior Myocardial infarction) ASA 4: a patient with an incapacitating disease that is a constant threat to life (CHF, renal failure) ASA 5: a moribund patient not expected to survive 24 hrs. (ruptured aneurysm) ASA 6: a declared brain- patient whose organs are being harvested. For emergent operations, add the letter E after the classification Mallampati Classification Grade 2 Sedation Plan Analgesia, Amnesia, Plan communicated to team members, Discussed options with patient/fam, Discussed risks with patient/fam The patient is an appropriate candidate to undergo the planned procedure, sedation, and anesthesia. The patient immediately re-assessed prior to indication. MARISOL COSTELLO MD FACP FAC CCDS May 18, 2021 11:51
--- NOTE | 2021-05-18 12:47 | History & Physical ---
ISIS PRASAD 05/18/21 1247: History of Present Illness History of Present Illness Reason for visit/HPI Pt is a 66yo male w/PMH of HTN, HLD who presented to ER yesterday with chest tightness that had been intermittent over the last few days. He has also had some issues with GERD lately so he was not sure if that was causing his symptoms. He mentions having some shortness of breath associated with the chest tightness and would have to sit down and take some deep breaths to recoup. He usually takes amlodipine for HTN but had not taken it the last few days. This morning he is not experiencing any chest pain or shortness of bretah. Date of Admission May 17, 2021 at 12:26 Date Seen by a Provider: May 18, 2021 Time Seen by a Provider: 11:45 I consulted on this patient on 05/18/21 12:42 Attending Physician An Dorsey MD Admitting Physician Eduardo Novak MD Consult Allergies and Home Medications Allergies Coded Allergies: No Known Drug Allergies (Unverified , 05/06/14) Patient Home Medication List No Active Prescriptions or Reported Meds Past Zyzsmip-Mtyoem-Dplbio Hx Patient Social History Tobacco Use?: No Use of E-Cig and/or Vaping dev: No Substance use?: No Alcohol Use?: Yes Alcohol type: Beer Alcohol Frequency: Couple times a week Additional Alcohol Comments: ONCE A WEEK Pt feels they are or have been: No Immunizations Up To Date Date of Influenza Vaccine: Dec 07, 2020 First/Initial COVID19 Vaccinat: 2020 Second COVID19 Vaccination Joey: 2020 Seasonal Allergies Seasonal Allergies: Yes (mild) Current Status Advance Directives: Yes Advance Directive Location: Family to bring in copy Communicates: Verbally Primary Language: Belarusian Preferred Spoken Language: Belarusian Is interpretation needed?: No Implanted or Applied Medical D: None Past Medical History Surgeries: Appendectomy High Cholesterol Sexually Transmitted Disease: No HIV/AIDS: No Loss of Vision: Denies Hearing Impairment: Denies Did You Recieve Any Treatments: No Blood Disorders: No Family Medical History Heart Disease, Hypertension, Other Conditions/Hx Review of Systems Constitutional: No chills, No diaphoresis Respiratory: dyspnea on exertion, short of breath Cardiovascular: chest pain (more of a tightness); No Hx of Intervention Gastrointestinal: No abdominal pain; heartburn; No nausea, No vomiting Physical Exam Vital Signs Vital Signs - First Documented 05/17/21 10:57 Temp 36.6 Pulse 73 Resp 18 B/P (MAP) 164/107 (126) Pulse Ox 97 Capillary Refill : Less Than 3 Seconds Height, Weight, BMI Height: 5'10.00" Weight: 185lbs. 0oz. 83.960012pc; 27.20 BMI Method:Stated General Appearance: No Apparent Distress, WD/WN HEENT: PERRL/EOMI Neck: Normal Inspection, Supple Respiratory: Lungs Clear, No Accessory Muscle Use Cardiovascular: Regular Rate, Rhythm, No Murmur, Normal Peripheral Pulses Gastrointestinal: Normal Bowel Sounds, Non Tender, Soft Extremity: Normal Inspection, No Pedal Edema Neurologic/Psychiatric: Alert, Oriented x3, No Motor/Sensory Deficits Skin: Normal Color Assessment/Plan Assessment and Plan NSTEMI HTN HLD Cardiology consulted, had a cath this morning, stent placed in R coronary artery Normal echo yesterday Starting Aspirin, Plavix, Lisinopril, Metoprolol, Lipitor Will monitor pt for the day and plan for discharge tomorrow if no further complications Problems: (1) NSTEMI (non-ST elevated myocardial infarction) Status: Acute Admission Diagnosis NSTEMI Admission Status: Inpatient Order (span 2 midnights) Reason for Inpatient Admission: Monitor labs/vitals Clinical Quality Measures AMI/AHF: ASA po Prior to arrival: AN Oliver MD 05/18/21 2002: Allergies and Home Medications Allergies Coded Allergies: No Known Drug Allergies (Unverified , 05/06/14) Patient Home Medication List Home Medication List Reviewed: Yes No Active Prescriptions or Reported Meds Assessment/Plan Assessment and Plan Admitted with NSTEMI. Underwent left heart cath with coronary stent placement in RCA. Continue to monitor. Admission Diagnosis Admission Status: Inpatient Order (span 2 midnights) Reason for Inpatient Admission: NSTEMI treatment Supervisory-Addendum Brief Verification & Attestation Participated in pt care: history, MDM, physical Personally performed: exam, history, MDM, supervision of care Care discussed with: Medical Student Procedures: n/a Results interpretation: Verified all documentation A medical student performed and documented this service in my presence. I reviewed and verified all information documented by the medical student and made modifications to such information, when appropriate. I personally performed the physical exam and medical decision making. OSMAR,ISIS May 18, 2021 12:47 AN DORSEY MD May 18, 2021 20:02
--- NOTE | 2021-05-18 15:20 | CARDIAC CATHETERIZATION ---
DATE OF SERVICE: 05/18/2021 CARDIAC CATHETERIZATION AND CORONARY INTERVENTION REPORT INDICATIONS: The patient is a 66-year-old man who presented with an acute non-ST elevation myocardial infarction. He has had unstable symptoms for several weeks. Cardiac catheterization was carried out after having obtained an informed consent for cardiac catheterization and possible ad hoc coronary intervention. DESCRIPTION OF PROCEDURE: He was brought to the cardiac catheterization laboratory in a fasting state. Right groin was prepared and draped in the usual sterile fashion. Lidocaine 1% was used for local anesthesia. Modified Seldinger technique was used to advance a 5-Indian sheath in the right femoral artery, 5-Indian JL3.5 catheter was used for left coronary angiography, 5-Indian JR4 catheter was used for right coronary angiography, 5-Indian pigtail catheter was used for left heart catheterization and left ventricular angiography. Subsequently, percutaneous intervention was carried out to a dominant right coronary artery and it is described below. PERCUTANEOUS INTERVENTION TO THE RIGHT CORONARY ARTERY: We exchanged the sheath over a wire for a 45 cm 6-Indian sheath. This was because the patient had considerable iliac vessel tortuosity. We engaged the right coronary artery with a JR4 guide catheter with side holes, but this was not providing adequate support. We changed it out to a 6-Indian [place] guide. We used multiple wires to cross the lesion in the middle portion of this large dominant right coronary artery. This proved considerably difficult. Finally, the wire that we were able to cross was Whisper medium support wire. We carried out balloon angioplasty with multiple balloons. Nevertheless, we were not able to deliver a stent to the site. We then attempted to advance the stent with the help of a GuideLiner catheter, but this was also unsuccessful. We then used a ChoICE extra support wire as a paola wire, and were then able to advance the stent on the original Whisper wire. This is a Skypoint 3x12 mm stent. It was deployed at 16 atmospheres. Subsequent angiography reveals no significant residual stenosis and flow throughout the vessel is normal (AVILA 3). CORONARY ANGIOGRAPHY: Left main coronary artery is free of significant disease. Left anterior descending and left circumflex arteries have diffuse mild plaques. Left circumflex artery is nondominant. Right coronary artery is large and dominant and had a 99% mid vessel stenosis, which successful balloon angioplasty and stenting was carried out. Following deployment of Skypoint 3.0 x 12 mm stent, there is no significant residual stenosis. Right coronary artery is dominant. LEFT VENTRICULAR ANGIOGRAPHY: Left ventricular angiography was carried out in the right anterior oblique projection. Global left ventricular systolic function normal. Left ventricular ejection fraction of 60% to 65%. HEMODYNAMICS: Left ventricular end-diastolic pressure following coronary angiography was 9 mmHg and there was no significant pressure gradient on pullback across the aortic valve. CONCLUSIONS: 1. Coronary artery disease primarily consisting of 99% mid vessel stenosis of the dominant right coronary artery that was successfully stented with Skypoint 3.0 x 12 mm stent. The rest of coronary vessels have mild diffuse plaques. 2. Normal left ventricular end-diastolic pressure (9 mmHg). 3. Normal global left ventricular systolic function with an ejection fraction approximately 60% to 65%. Job ID: [id number] DocumentID: [id number] Dictated Date: 05/18/2021 10:57:46 Digital Camera Technician Date: 05/18/2021 12:23:38 Dictated By: MARISOL COSTELLO MD, MA, FACP, FACC, MTDD
[2021-05-18] MEDS: amLODIPine 5 MG (NORVASC) TAB PO SCH (19:08)
[2021-05-19 04:00] VITALS: BP 129/81
[2021-05-19 04:56] LABS: BASOPHILS % (AUTO) 1 % (0-10); EOSINOPHILS # (AUTO) 0.1 10^3/uL (0.0-0.3); EOSINOPHILS % (AUTO) 2 % (0-10); HEMATOCRIT 41 % (40-54); HEMOGLOBIN 13.7 g/dL (13.3-17.7); LYMPHOCYTES # (AUTO) 2.6 10^3/uL (1.0-4.0); LYMPHOCYTES % (AUTO) 34 % (12-44); MEAN CORPUSCULAR HEMOGLOBIN 30 pg (25-34); MEAN CORPUSCULAR HGB CONC 34 g/dL (32-36); MEAN CORPUSCULAR VOLUME 89 fL (80-99); MEAN PLATELET VOLUME 9.8 fL (9.0-12.2); MONOCYTES # (AUTO) 0.8 10^3/uL (0.0-1.0); MONOCYTES % (AUTO) 10 % (0-12); NEUTROPHILS # (AUTO) 4.2 10^3/uL (1.8-7.8); NEUTROPHILS % (AUTO) 54 % (42-75); PLATELET COUNT 227 10^3/uL (130-400); WHITE BLOOD COUNT 7.7 10^3/uL (4.3-11.0)
[2021-05-19 05:04] LABS: POTASSIUM 4.1 MMOL/L (3.6-5.0)
[2021-05-19 05:10] LABS: CREATININE SERUM 1.08 MG/DL (0.60-1.30)
[2021-05-19] MEDS: NS IV 1000 ML 1,000 ML IV SCH ×2 (05:33)
[2021-05-19] MEDS: amLODIPine 5 MG (NORVASC) TAB PO SCH (07:41)
[2021-05-19] MEDS: ASPIRIN 81 MG CHEW (CHILDREN'S ASA) PO SCH (07:41)
[2021-05-19] MEDS: CLOPIDOGREL 75 MG (PLAVIX) TABLET PO SCH (07:41)
[2021-05-19] MEDS ORDERED: ATOR40TA PO (08:05)
[2021-05-19] MEDS ORDERED: ASPI81TA64 PO (08:05)
[2021-05-19] MEDS ORDERED: CLOP75TA28 PO (08:05)
--- NOTE | 2021-05-19 08:06 | Progress Note - Cardiology ---
Cardiology SOAP Progress Note Objective: I&O/Vital Signs 05/18/21 05/18/21 05/18/21 05/18/21 21:00 22:00 23:00 23:45 Temp 36.6 Pulse 59 56 60 59 Resp 19 8 16 B/P (MAP) 140/85 (107) 136/83 (107) 143/89 (107) 129/76 (93) Pulse Ox 93 94 95 97 O2 Delivery Room Air Room Air Room Air Room Air 05/18/21 05/19/21 05/19/21 05/19/21 23:45 01:00 04:00 07:00 Temp 36.7 Pulse 57 55 54 Resp 14 B/P (MAP) 129/81 (97) Pulse Ox 97 97 O2 Delivery Room Air Room Air 05/19/21 05/19/21 07:00 07:48 Temp 36.5 Pulse 54 Pulse Ox 97 O2 Delivery Room Air 05/19/21 00:00 Intake Total 240 ml Balance 240 ml Weight (Pounds): 185 Weight (Ounces): 0 Weight (Calculated Kilograms): 83.754048 Constitutional: AAO x 3, well-developed, well-nourished Respiratory: chest expansion is symmetric, chest is bilaterally symmetric, lungs clear to auscultation Cardiovascular: regular rate-rhythm, S1 and S2 Gastrointestional: soft, round, audible bowel sounds Extremities: no lower extremity edema bilateral Neurologic/Psychiatric: other Skin: No rash on exposed areas, No ulcerations on exposed areas Results/Procedures: Labs Laboratory Tests 05/19/21 04:05: White Blood Count 7.7, Red Blood Count 4.56, Hemoglobin 13.7, Hematocrit 41, Mean Corpuscular Volume 89, Mean Corpuscular Hemoglobin 30, Mean Corpuscular Hemoglobin Concent 34, Red Cell Distribution Width 13.0, Platelet Count 227, Mean Platelet Volume 9.8, Immature Granulocyte % (Auto) 0, Neutrophils (%) (Auto) 54, Lymphocytes (%) (Auto) 34, Monocytes (%) (Auto) 10, Eosinophils (%) (Auto) 2, Basophils (%) (Auto) 1, Neutrophils # (Auto) 4.2, Lymphocytes # (Auto) 2.6, Monocytes # (Auto) 0.8, Eosinophils # (Auto) 0.1, Basophils # (Auto) 0.0, Immature Granulocyte # (Auto) 0.0, Sodium Level 138, Potassium Level 4.1, Chloride Level 105, Carbon Dioxide Level 21, Anion Gap 12, Blood Urea Nitrogen 21H, Creatinine 1.08, Estimat Glomerular Filtration Rate 75, BUN/Creatinine Ratio 19, Glucose Level 90, Calcium Level 9.0 Microbiology 05/17/21 MRSA Screen - Final, Complete MRSA not isolated Laboratory Tests 05/17/21 11:06 05/18/21 04:15 05/19/21 04:05 A/P: Assessment: CAD. NSTEMI on 05/17/21 - Echo 05/17/21: LVEF 60-65%, PASP 20 mmHg - Cath 05/18/21: 99% mid-RCA (dominant vessel) stented successfully with Skypoint 3x12 stent, mild plaque of LAD and LCx, LVEDP 9 mmHg, LVEF 60-65% HTN - has not been compliant with medications (Norvas) HLD - has not been compliant with statin H/o transient global amnesia in 2017 for which he was evaluated at [facility] by neurology - per pt/spouse no further episodes - cause unknown Family h/o CAD - Mother and brother Plan: - statin, ASA, Plavix and BB - Monitor lab - I spoke with him and his fam and explained findings of cath and invterventions undertaken Clinical Quality Measures AMI/AHF: ASA po Prior to arrival: HARRISON Kunz May 19, 2021 08:06
--- NOTE | 2021-05-19 08:39 | Tele-ICU Progress Note ---
Subjective Date Seen by a Provider: May 19, 2021 Time Seen by a Provider: 08:37 Subjective/Events-last exam 66 M with NSTEMI, went to [facility] for stenting of RCA. Now on DPT 10 Sepsis Event Evaluation Height, Weight, BMI Height: 5'10.00" Weight: 185lbs. 0oz. 83.480060of; 27.20 BMI Method:Stated Exam Exam Patient acknowledged, consented, and participated in this virtual visit which was conducted using real time audio/video Vital Signs Date Time Temp Pulse Resp B/P (MAP) Pulse Ox O2 Delivery O2 Flow Rate FiO2 05/19/21 07:48 36.5 05/19/21 07:00 54 97 Room Air 05/19/21 07:00 54 05/19/21 04:00 36.7 55 14 129/81 (97) 97 Room Air 05/19/21 01:00 57 05/18/21 23:45 97 Room Air 05/18/21 23:45 36.6 59 16 129/76 (93) 97 Room Air 05/18/21 23:00 60 143/89 (107) 95 Room Air 05/18/21 22:00 56 8 136/83 (107) 94 Room Air 05/18/21 21:00 59 19 140/85 (107) 93 Room Air 05/18/21 20:00 60 33 138/85 (102) 92 Room Air 05/18/21 19:25 96 Room Air 05/18/21 19:00 36.5 66 13 130/84 (99) 96 Room Air 05/18/21 19:00 64 05/18/21 17:00 60 12 134/85 (101) 96 Room Air 05/18/21 16:00 36.8 05/18/21 16:00 96 Room Air 05/18/21 16:00 55 12 126/72 (90) 94 Room Air 05/18/21 15:00 51 10 138/84 (102) 95 Room Air 05/18/21 14:30 55 9 119/78 (92) 95 Room Air 05/18/21 14:00 54 12 118/81 (93) 93 Room Air 05/18/21 13:30 53 14 123/85 (98) 93 Room Air 05/18/21 13:00 53 05/18/21 13:00 51 13 110/78 (89) 93 Room Air 05/18/21 12:30 52 13 122/90 (101) 95 Room Air 05/18/21 12:15 52 11 122/85 (97) 95 Room Air 05/18/21 12:00 37.2 05/18/21 12:00 51 13 130/83 (99) 98 Room Air 05/18/21 12:00 96 Room Air 05/18/21 11:45 51 9 125/83 (97) 98 Room Air 05/18/21 11:30 52 10 133/82 (99) 98 Room Air 05/18/21 11:15 53 7 131/99 (110) 98 Room Air 05/18/21 11:10 53 12 98 Room Air 05/18/21 11:00 136/91 (106) Room Air 05/18/21 09:00 53 19 93 Room Air I & O 05/19/21 07:00 Intake Total 1315 ml Balance 1315 ml Height & Weight Height: 5'10.00" Weight: 185lbs. 0oz. 83.954354rf; 27.20 BMI Method:Stated General Appearance: No Apparent Distress, WD/WN HEENT: PERRL/EOMI Neck: Normal Inspection, Supple Respiratory: Lungs Clear, No Accessory Muscle Use Cardiovascular: Regular Rate, Rhythm, No Murmur, Normal Peripheral Pulses Capillary Refill: Less Than 3 Seconds Extremity: Normal Inspection, No Pedal Edema Neurologic/Psychiatric: Alert, Oriented x3, No Motor/Sensory Deficits Skin: Normal Color Results Lab Laboratory Tests 05/17/21 11:06 05/18/21 04:15 05/19/21 04:05 Assessment/Plan Assessment/Plan NSTEMI, on DPT, going home today Critical Care: Critically Ill Patient GRACIE CASTILLO MD May 19, 2021 08:39
[2021-05-19] MEDS ORDERED: lisINopril 10 MG (PRINIVIL) TABLET PO SCH (09:00)
[2021-05-19] MEDS ORDERED: LISI10TA25 PO (09:09)
--- NOTE | 2021-05-19 09:11 | Progress Note - Cardiology ---
Cardiology SOAP Progress Note Objective: I&O/Vital Signs 05/18/21 05/18/21 05/18/21 05/18/21 22:00 23:00 23:45 23:45 Temp 36.6 Pulse 56 60 59 Resp 8 16 B/P (MAP) 136/83 (107) 143/89 (107) 129/76 (93) Pulse Ox 94 95 97 97 O2 Delivery Room Air Room Air Room Air Room Air 05/19/21 05/19/21 05/19/21 05/19/21 01:00 04:00 07:00 07:00 Temp 36.7 Pulse 57 55 54 54 Resp 14 B/P (MAP) 129/81 (97) Pulse Ox 97 97 O2 Delivery Room Air Room Air 05/19/21 07:48 Temp 36.5 05/18/21 23:59 Intake Total 240 ml Balance 240 ml Weight (Pounds): 185 Weight (Ounces): 0 Weight (Calculated Kilograms): 83.048964 Constitutional: AAO x 3, well-developed, well-nourished Respiratory: chest expansion is symmetric, chest is bilaterally symmetric, lungs clear to auscultation Cardiovascular: regular rate-rhythm, S1 and S2 Gastrointestional: soft, round, audible bowel sounds Extremities: no lower extremity edema bilateral Neurologic/Psychiatric: other Skin: No rash on exposed areas, No ulcerations on exposed areas Results/Procedures: Labs Laboratory Tests 05/19/21 04:05: White Blood Count 7.7, Red Blood Count 4.56, Hemoglobin 13.7, Hematocrit 41, Mean Corpuscular Volume 89, Mean Corpuscular Hemoglobin 30, Mean Corpuscular Hemoglobin Concent 34, Red Cell Distribution Width 13.0, Platelet Count 227, Mean Platelet Volume 9.8, Immature Granulocyte % (Auto) 0, Neutrophils (%) (Auto) 54, Lymphocytes (%) (Auto) 34, Monocytes (%) (Auto) 10, Eosinophils (%) (Auto) 2, Basophils (%) (Auto) 1, Neutrophils # (Auto) 4.2, Lymphocytes # (Auto) 2.6, Monocytes # (Auto) 0.8, Eosinophils # (Auto) 0.1, Basophils # (Auto) 0.0, Immature Granulocyte # (Auto) 0.0, Sodium Level 138, Potassium Level 4.1, Chloride Level 105, Carbon Dioxide Level 21, Anion Gap 12, Blood Urea Nitrogen 21H, Creatinine 1.08, Estimat Glomerular Filtration Rate 75, BUN/Creatinine Ratio 19, Glucose Level 90, Calcium Level 9.0 Microbiology 05/17/21 MRSA Screen - Final, Complete MRSA not isolated Laboratory Tests 05/17/21 11:06 05/18/21 04:15 05/19/21 04:05 A/P: Assessment: CAD. NSTEMI on 05/17/21 - Echo 05/17/21: LVEF 60-65%, PASP 20 mmHg - Cath 05/18/21: 99% mid-RCA (dominant vessel) stented successfully with Skypoint 3x12 stent, mild plaque of LAD and LCx, LVEDP 9 mmHg, LVEF 60-65% HTN - has not been compliant with medications (Norvas) HLD - has not been compliant with statin H/o transient global amnesia in 2017 for which he was evaluated at [facility] by neurology - per pt/spouse no further episodes - cause unknown Family h/o CAD - Mother and brother Plan: - statin, ASA, Plavix - Not a suitable candidate for BB d/t documented bradycardia - Continue amlodipine and Lisinopril for HTN management - Monitor lab - I spoke with him and his fam and explained findings of cath and invterventions undertaken - Ok to discharge home today with out pt f/u in a week Clinical Quality Measures AMI/AHF: ASA po Prior to arrival: HARRISON Kunz May 19, 2021 09:11
[2021-05-19] MEDS ORDERED: AMLO-250 PO (09:12)
--- NOTE | 2021-05-19 09:13 | Discharge Inst-Cardiology ---
Discharge Inst-Cardiac Discharge Medications New Medications: Amlodipine Besylate (Amlodipine Besylate) 5 Mg Tablet 5 MG PO DAILY, #90 TAB 3 Refills Aspirin (Children's Aspirin) 81 Mg Tab.chew 81 MG PO DAILY, #90 TAB 3 Refills Atorvastatin Calcium (Lipitor) 40 Mg Tablet 40 MG PO HS, #90 TAB 3 Refills Clopidogrel Bisulfate (Clopidogrel) 75 Mg Tablet 75 MG PO DAILY, #90 TAB 3 Refills Lisinopril (Lisinopril) 10 Mg Tablet 10 MG PO DAILY for 30 Days, #30 TAB 0 Refills New, Converted or Re-Newed RX: Transmitted to Pharmacy Patient Instructions Patient Instructions: Please schedule follow up appointment to see Dr. Quach in 1-2 weeks HARRISON STOKES May 19, 2021 09:13
--- NOTE | 2021-05-19 14:34 | Progress Note - Cardiology ---
Cardiology SOAP Progress Note Subjective: No cp or palp or syncope or shortness of breath No n/v/d No groin or leg discomfort, swelling, or discoloration No focal weakness Objective: I&O/Vital Signs 05/19/21 05/19/21 05/19/21 05/19/21 04:00 07:00 07:00 07:48 Temp 36.7 36.5 Pulse 55 54 54 Resp 14 B/P (MAP) 129/81 (97) Pulse Ox 97 97 O2 Delivery Room Air Room Air 05/19/21 05/19/21 08:00 09:00 Pulse 56 64 Resp 9 Pulse Ox 95 97 O2 Delivery Room Air Room Air 05/19/21 00:00 Intake Total 240 ml Balance 240 ml Weight (Pounds): 185 Weight (Ounces): 0 Weight (Calculated Kilograms): 83.012669 Condition: DP/PT pulses palpable Bruising: mild bruising Constitutional: AAO x 3, well-developed, well-nourished Respiratory: chest expansion is symmetric, chest is bilaterally symmetric, lungs clear to auscultation Cardiovascular: regular rate-rhythm, S1 and S2 Gastrointestional: soft, round, audible bowel sounds Extremities: no lower extremity edema bilateral Neurologic/Psychiatric: other Skin: No rash on exposed areas, No ulcerations on exposed areas Results/Procedures: Labs Laboratory Tests 05/19/21 04:05: White Blood Count 7.7, Red Blood Count 4.56, Hemoglobin 13.7, Hematocrit 41, Mean Corpuscular Volume 89, Mean Corpuscular Hemoglobin 30, Mean Corpuscular Hemoglobin Concent 34, Red Cell Distribution Width 13.0, Platelet Count 227, Mean Platelet Volume 9.8, Immature Granulocyte % (Auto) 0, Neutrophils (%) (Auto) 54, Lymphocytes (%) (Auto) 34, Monocytes (%) (Auto) 10, Eosinophils (%) (Auto) 2, Basophils (%) (Auto) 1, Neutrophils # (Auto) 4.2, Lymphocytes # (Auto) 2.6, Monocytes # (Auto) 0.8, Eosinophils # (Auto) 0.1, Basophils # (Auto) 0.0, Immature Granulocyte # (Auto) 0.0, Sodium Level 138, Potassium Level 4.1, Chloride Level 105, Carbon Dioxide Level 21, Anion Gap 12, Blood Urea Nitrogen 21H, Creatinine 1.08, Estimat Glomerular Filtration Rate 75, BUN/Creatinine Ratio 19, Glucose Level 90, Calcium Level 9.0 Microbiology 05/17/21 MRSA Screen - Final, Complete MRSA not isolated Laboratory Tests 05/18/21 04:15 05/19/21 04:05 A/P: Assessment: CAD. NSTEMI on 05/17/21 - Echo 05/17/21: LVEF 60-65%, PASP 20 mmHg - Cath 05/18/21: 99% mid-RCA (dominant vessel) stented successfully with Skypoint 3x12 stent, mild plaque of LAD and LCx, LVEDP 9 mmHg, LVEF 60-65% HTN - has not been compliant with medications (Norvas) HLD - has not been compliant with statin H/o transient global amnesia in 2017 for which he was evaluated at [facility] by neurology - per pt/spouse no further episodes - cause unknown Family h/o CAD - Mother and brother Plan: - statin, ASA, Plavix - Not a suitable candidate for BB d/t documented bradycardia - Continue amlodipine and Lisinopril for HTN management - Monitor lab - I again spoke with him and his and explained findings of cath and invterventions undertaken - Ok to discharge home today with out pt f/u in a week Clinical Quality Measures AMI/AHF: ASA po Prior to arrival: MARISOL Venegas MD FACP FAC CCDS May 19, 2021 14:34
--- NOTE | 2021-05-19 21:22 | Discharge Summary ---
Discharge Summary Hospital Course Problems/Dx: (1) NSTEMI (non-ST elevated myocardial infarction) Status: Acute Hospital Course Date of Admission: May 17, 2021 at 12:26 Admission Diagnosis : NSTEMI Family Physician/Provider: Oracio Lane MD Date of Discharge: 05/19/21 Discharge Diagnosis: NSTEMI Hospital Course: Joel Dominguez is a 66 year old male who was admitted with NSTEMI. Cardiology was consulted and assisted with his care. He underwent left heart catheterization with coronary stent placement to the RCA. He was started on Aspirin and Plavix. He also had dyslipidemia and was started on Lipitor. He was started on Amlodipine and Lisinopril for hypertension. He should follow up with his PCP and Cardiology. He was discharged home in stable condition. Labs and Pending Lab Test: Laboratory Tests 05/19/21 04:05: White Blood Count 7.7, Red Blood Count 4.56, Hemoglobin 13.7, Hematocrit 41, Mean Corpuscular Volume 89, Mean Corpuscular Hemoglobin 30, Mean Corpuscular Hemoglobin Concent 34, Red Cell Distribution Width 13.0, Platelet Count 227, Mean Platelet Volume 9.8, Immature Granulocyte % (Auto) 0, Neutrophils (%) (Auto) 54, Lymphocytes (%) (Auto) 34, Monocytes (%) (Auto) 10, Eosinophils (%) ( Auto) 2, Basophils (%) (Auto) 1, Neutrophils # (Auto) 4.2, Lymphocytes # (Auto) 2.6, Monocytes # (Auto) 0.8, Eosinophils # (Auto) 0.1, Basophils # (Auto) 0.0, Immature Granulocyte # (Auto) 0.0, Sodium Level 138, Potassium Level 4.1, Chloride Level 105, Carbon Dioxide Level 21, Anion Gap 12, Blood Urea Nitrogen 21H, Creatinine 1.08, Estimat Glomerular Filtration Rate 75, BUN/Creatinine Ratio 19, Glucose Level 90, Calcium Level 9.0 Microbiology 05/17/21 MRSA Screen - Final, Complete MRSA not isolated Home Meds Active Amlodipine Besylate 5 Mg Tablet 5 Mg PO DAILY Lisinopril 10 Mg Tablet 10 Mg PO DAILY 30 Days Children's Aspirin (Aspirin) 81 Mg Tab.chew 81 Mg PO DAILY Lipitor (Atorvastatin Calcium) 40 Mg Tablet 40 Mg PO HS Clopidogrel (Clopidogrel Bisulfate) 75 Mg Tablet 75 Mg PO DAILY Assessment/Pt Instructions See instructions Discharge Planning: >30 minutes discharge planning Consultations Cardiology Discharge Physical Examination Vital Signs Vital Signs Date Time Temp Pulse Resp B/P (MAP) Pulse Ox O2 Delivery O2 Flow Rate FiO2 05/19/21 09:00 64 9 97 Room Air 05/19/21 07:48 36.5 05/19/21 04:00 129/81 (97) General Appearance: No Apparent Distress, WD/WN Respiratory: Lungs Clear, No Respiratory Distress Cardiovascular: Regular Rate, Rhythm, No Murmur Gastrointestinal: Normal Bowel Sounds, Soft Extremity: Normal Inspection, No Pedal Edema Skin: Normal Color, Warm/Dry Neurologic/Psychiatric: Alert, Normal Mood/Affect Allergies: Coded Allergies: No Known Drug Allergies (Unverified , 05/06/14) Copy Copies To 1: ORACIO LANE MD Discharge Summary Date of Admission May 17, 2021 at 12:26 Date of Discharge May 19, 2021 at 09:45 Discharge Date: May 19, 2021 Discharge Time: 09:45 Admission Diagnosis NSTEMI Consults/Procedures Consulations Cardiology Procedures Left heart cath with coronary stenting Discharge Diagnosis (1) NSTEMI (non-ST elevated myocardial infarction) Status: Acute (2) CAD (coronary artery disease) Status: Acute (3) HTN (hypertension) Status: Acute (4) HLD (hyperlipidemia) Status: Acute Qualifiers: Qualified Codes: E78.2 - Mixed hyperlipidemia Clinical Quality Measures AMI/AHF: ASA po Prior to arrival: AN Oliver MD May 19, 2021 21:22
== END 2021-05-19 09:45 | disposition home or self-care (01) | DRG 247 ==
LOC: EDUNIT# 10:56 → ER 10:57 → ICU 12:26
PROVIDERS: ADMIT Internal Medicine; ATTEND Internal Medicine
PROC: 027034Z Dilation of Coronary Artery, One Artery with Drug-eluting Intraluminal Device, Percutaneous Approach (ICD-10-PCS; principal; 2021-05-18)
PROC: 4A023N7 Measurement of Cardiac Sampling and Pressure, Left Heart, Percutaneous Approach (ICD-10-PCS; 2021-05-18)
PROC: B2111ZZ Fluoroscopy of Multiple Coronary Arteries using Low Osmolar Contrast (ICD-10-PCS; 2021-05-18)
PROC: B2151ZZ Fluoroscopy of Left Heart using Low Osmolar Contrast (ICD-10-PCS; 2021-05-18)
DX: I21.4 Non-ST elevation (NSTEMI) myocardial infarction (principal); I25.10 Atherosclerotic heart disease of native coronary artery without angina pectoris; I10 Essential (primary) hypertension; K21.9 Gastro-esophageal reflux disease without esophagitis; E78.00 Pure hypercholesterolemia, unspecified; Z82.49 Family history of ischemic heart disease and other diseases of the circulatory system
CPT/HCPCS: 36415; 71045; 80048; 80053; 80061; 83690; 83735; 83874; 83880; 84484; 85025; 85027; 85610; 85730; 87081; 93005; 93041; 93306; 93458